=== PATIENT | female | born 1955 | race Caucasian/White ===

== ENCOUNTER 2020-02-21 01:12 | Outpatient (CLI) | payer MEDICARE, SELFPAY ==
[2020-02-21 19:58] LABS: SARS-CoV-2 RNA PCR Negative
== END 2020-02-21 01:13 | disposition home or self-care (01) ==
LOC: ANHCOVIDDT 01:12
PROVIDERS: PCP Family Medicine; Visit Provider Internal Medicine Gastroenterology
DX: Z01.812 Encounter for preprocedural laboratory examination (principal); Z20.828 Contact with and (suspected) exposure to other viral communicable diseases
CPT/HCPCS: 87635; C9803; U0003

== ENCOUNTER 2020-02-23 03:33 | Day surgery (SDC) | payer MEDICARE, SELFPAY ==
[2020-02-16 11:46] VITALS: BMI 32.0
[2020-02-23 09:10] VITALS: BP 155/79; PULSE 72; RESP 16; TEMP 37.1; O2SAT 96; BMI 30.7
[2020-02-23] MEDS: LACTATED RINGERS 1,000 ML 150 ML IV CONT (09:24)
[2020-02-23 09:27] LABS: Glucose Point of Care 119 (65-105)
--- NOTE | 2020-02-23 09:45 | WPDGICN ---
Assessment and Plan Assessment and plan (1) History of colon polyps: Code(s): Z86.010 - Personal history of colonic polyps Status: Acute Assessment and Plan: Patient has history of colon polyps removed 2010 or . Plan is for surveillance colonoscopy at this time. High-fiber diet advised. (2) History of coronary artery stent placement: Code(s): Z95.5 - Presence of coronary angioplasty implant and graft Status: Acute GI Consult Note Consult date/time: 02/23/20 09:45 HPI: Che Crane is a 64 year old female Seen in evaluation at the [facility] of Dr Styles. patient has a history of colon polyp removed from the colon in 2010. Her current weight appetite bowel movements are normal. She presents for follow-up colonoscopy. She denies any abdominal pain. She has had no bleeding. Her bowel habits are regular. Past medical history is significant for atherosclerotic heart disease for which she has had a heart stent. She is on Plavix which will be held for colonoscopy per family history is noncontributory. Review of Systems Review of Systems: All systems reviewed & are unremarkable except as noted in HPI and below PMFSH Past Medical History Medical History (Updated 02/23/20 @ 09:47 by José Miguel Ramon MD) Anxiety disorder, unspecified Atherosclerotic heart disease of [place] coronary artery with angina pectoris Environmental allergies Essential hypertension GERD without esophagitis Hyperlipidemia, unspecified Sleep apnea Type 2 diabetes mellitus without complication, without long-term current use of insulin Surgical History Surgical History (Updated 02/23/20 @ 09:47 by José Miguel Ramon MD) History of cholecystectomy 1982 History of coronary artery stent placement 4 stents - 2006 and 2014 History of loop electrical excision procedure (LEEP) 1999 Family History Family History Father Family history of tuberculosis Family history of emphysema Patient's father is Family history of chronic obstructive pulmonary disease Family history of malignant neoplasm of brain Family history of malignant neoplasm of bone Mother Family history of Alzheimer's disease Family history of hypercholesterolemia Hypertension Sibling Family history of kidney stones Other Cerebrovascular accident Depression Diabetes mellitus Family history of arthritis Family history of mental disorder Malignant neoplasm of prostate Social History Social History Smoking status: Never smoker Alcohol intake: current Drinks per week: 2 Alcohol use details: STATES OCCASSIONAL AND SOCIAL Substance use: never Substance use type: does not use Living arrangements: alone Gender identity (if verbalized by the patient): Female Spiritual care concerns: No Meds Home Medications and Allergies Home Medications Medication Instructions Recorded Confirmed Type amlodipine 10 mg tablet 10 mg PO DAILY 09/22/19 02/16/20 History aspirin 81 mg tablet,delayed 81 mg PO DAILY 09/22/19 02/16/20 History release atorvastatin 20 mg tablet 20 mg PO DAILY 09/22/19 02/16/20 History calcium carbonate 600 mg calcium 600 mg PO DAILY 09/22/19 02/16/20 History (1,500 mg) tablet clopidogrel 75 mg tablet 75 mg PO DAILY 09/22/19 02/16/20 History cyanocobalamin (vitamin B-12) 250 250 mcg PO DAILY 09/22/19 02/16/20 History mcg tablet dulaglutide 1.5 mg/0.5 mL 1.5 mg SUB-Q WEEKLY 09/22/19 02/16/20 History subcutaneous pen injector empagliflozin 10 mg tablet 10 mg PO DAILY 09/22/19 02/16/20 History escitalopram oxalate 10 mg tablet 10 mg PO DAILY #90 tablet 09/22/19 02/16/20 Rx fenofibrate 160 mg tablet 160 mg PO DAILY 09/22/19 02/16/20 History fluticasone propionate 50 1 spray NASAL DAILY 09/22/19 02/16/20 History mcg/actuation nasal spray,suspension losartan 25 mg tablet 25
--- NOTE | 2020-02-23 10:11 | WPDANESEPPF ---
Anes - Initial Pre Proc Eval Procedure: Operation Date: 02/23/20 10:00 Proposed Procedures p Screening Colonoscopy - José Miguel Ramon MD Date/Time: 02/23/20 10:11 Surgeon: José Miguel Ramon MD Pre Op Diagnosis: Hx Colon Polyps Patient Data Age: 64 Gender: F Height: 5 ft 1 in Weight: 73.6 kg Last Vital Signs Temp 37.1 C 02/23/20 09:10 Pulse 72 02/23/20 09:10 Resp 72 H 02/23/20 09:10 BP 155/79 H 02/23/20 09:10 Pulse Ox 96 02/23/20 09:10 Allergies Allergy/AdvReac Type Severity Reaction Status Date / Time lisinopril Allergy Severe swelling, Verified 02/23/20 09:09 itching, hives naproxen Allergy Unknown ITCHING, Verified 02/23/20 09:09 FACIAL SWELLING Home Medications Medication Instructions Recorded Confirmed Type amlodipine 10 mg tablet 10 mg PO DAILY 09/22/19 02/16/20 History aspirin 81 mg tablet,delayed 81 mg PO DAILY 09/22/19 02/16/20 History release atorvastatin 20 mg tablet 20 mg PO DAILY 09/22/19 02/16/20 History calcium carbonate 600 mg calcium 600 mg PO DAILY 09/22/19 02/16/20 History (1,500 mg) tablet clopidogrel 75 mg tablet 75 mg PO DAILY 09/22/19 02/16/20 History cyanocobalamin (vitamin B-12) 250 250 mcg PO DAILY 09/22/19 02/16/20 History mcg tablet dulaglutide 1.5 mg/0.5 mL 1.5 mg SUB-Q WEEKLY 09/22/19 02/16/20 History subcutaneous pen injector empagliflozin 10 mg tablet 10 mg PO DAILY 09/22/19 02/16/20 History escitalopram oxalate 10 mg tablet 10 mg PO DAILY #90 tablet 09/22/19 02/16/20 Rx fenofibrate 160 mg tablet 160 mg PO DAILY 09/22/19 02/16/20 History fluticasone propionate 50 1 spray NASAL DAILY 09/22/19 02/16/20 History mcg/actuation nasal spray,suspension losartan 25 mg tablet 25 mg PO DAILY 09/22/19 02/16/20 History metformin 500 mg tablet 1,000 mg PO BID tablet 09/22/19 02/16/20 History metoprolol succinate 50 mg 50 mg PO DAILY 09/22/19 02/16/20 History tablet,extended release 24 hr nitroglycerin 0.4 mg sublingual 0.4 mg SUBLINGUAL Q5M PRN 09/22/19 02/16/20 History tablet omega 0-lfw-php-fish oil 1,200 mg 2 cap PO DAILY 09/22/19 02/16/20 History (144 mg-216 mg) capsule omeprazole 20 mg capsule,delayed 20 mg PO DAILY 09/22/19 02/16/20 History release vitamin B complex 1 cap PO DAILY 09/22/19 02/16/20 History ezetimibe 10 mg tablet 10 mg PO .twice weekly tablet 12/23/19 02/16/20 History glucosamine sulfate 750 mg tablet 750 mg PO BID 12/23/19 02/16/20 History isosorbide mononitrate 60 mg 90 mg PO DAILY tablet 12/23/19 02/16/20 History tablet,extended release 24 hr Laboratory Tests 02/23/20 09:21 POC Capillary Glucose 119 mg/dl H mg/dl (65-105) Patient hx anesthesia problems: none Family hx anesthesia problems: none PMFSH Past Medical History Medical History Anxiety disorder, unspecified Atherosclerotic heart disease of [place] coronary artery with angina pectoris Environmental allergies Essential hypertension GERD without esophagitis Hyperlipidemia, unspecified Sleep apnea Type 2 diabetes mellitus without complication, without long-term current use of insulin Surgical History Surgical History History of cholecystectomy 1982 History of coronary artery stent placement 4 stents - 2007 and 2014 History of loop electrical excision procedure (LEEP) 1999 Family History Family History Father Family history of tuberculosis Family history of emphysema Patient's father is Family history of chronic obstructive pulmonary disease Family history of malignant neoplasm of brain Family history of malignant neoplasm of bone Mother Family history of Alzheimer's disease Family history of hypercholesterolemia Hypertension Sibling Family history of kidney stones Other Cerebrovascular accident Depressio
[2020-02-23 10:38] VITALS: BP 113/65; PULSE 70; RESP 16; O2SAT 97
[2020-02-23 10:48] VITALS: BP 122/70; PULSE 71; RESP 21; O2SAT 98
[2020-02-23 10:58] VITALS: BP 140/75; PULSE 61; RESP 16; O2SAT 98
== END 2020-02-23 11:20 | disposition home or self-care (01) ==
PROVIDERS: PCP Family Medicine; Visit Provider Internal Medicine Gastroenterology
PROC: 0DJD8ZZ Inspection of Lower Intestinal Tract, Via Natural or Artificial Opening Endoscopic (ICD-10-PCS; CPT 45378; principal; 2020-02-23 10:00)
DX: Z12.11 Encounter for screening for malignant neoplasm of colon (principal); K64.8 Other hemorrhoids; Z86.010 Personal history of colon polyps; Z95.5 Presence of coronary angioplasty implant and graft; I10 Essential (primary) hypertension; I25.10 Atherosclerotic heart disease of native coronary artery without angina pectoris; E78.5 Hyperlipidemia, unspecified; K21.9 Gastro-esophageal reflux disease without esophagitis; E11.9 Type 2 diabetes mellitus without complications; G47.30 Sleep apnea, unspecified; F41.9 Anxiety disorder, unspecified; Z79.82 Long term (current) use of aspirin; Z79.02 Long term (current) use of antithrombotics/antiplatelets; Z79.84 Long term (current) use of oral hypoglycemic drugs
CPT/HCPCS: G0105; J2704; J7120

== ENCOUNTER 2020-05-04 14:40 | Outpatient (CLI) | payer MEDICARE, SELFPAY ==
--- NOTE | 2020-05-04 | ECG_ITS ---
Measurements Intervals [place] Rate: 83 P: 44 IN: 133 QRS: 3 QRSD: 94 T: 30 QT: 367 QTc: 433 Interpretive Statements SINUS RHYTHM ANTEROSEPTAL INFARCT, AGE INDETERMINATE INFERIOR INFARCT, AGE INDETERMINATE ABNORMAL ECG Electronically Signed On 05-04-2020 15:24:31 [employer]PERVISOR [employer]UC[employer] by Eduardo Tuttle D.O.
== END 2020-05-04 14:41 | disposition home or self-care (01) ==
LOC: ANHLAB 14:43 → ANHCARD 14:46
PROVIDERS: PCP Family Medicine; Visit Provider Internal Medicine Cardiovascular Disease
DX: E78.2 Mixed hyperlipidemia (principal); Z98.61 Coronary angioplasty status; G47.33 Obstructive sleep apnea (adult) (pediatric); R09.89 Other specified symptoms and signs involving the circulatory and respiratory systems; R07.9 Chest pain, unspecified; I25.110 Atherosclerotic heart disease of native coronary artery with unstable angina pectoris; I51.9 Heart disease, unspecified; R94.31 Abnormal electrocardiogram [ECG] [EKG]
CPT/HCPCS: 93005

== ENCOUNTER → 2020-10-06 15:56 | Outpatient (CLI) | payer MEDICARE, SELFPAY ==
--- NOTE | ~2020-10-06 | MM_ITS ---
EXAMINATION: MM screening adelita BI w harry HISTORY: Screening mammogram TECHNIQUE: Craniocaudal and mediolateral oblique 3-D tomosynthesis images were obtained and synthetic 2-D images were generated. CAD analysis was submitted and interpreted. COMPARISON: 07/15/2018, 08/31/2015 bilateral digital screening mammogram examinations BREAST PARENCHYMAL COMPOSITION: There are scattered areas of fibroglandular density. FINDINGS: Occasional bilateral benign calcifications. Occasional bilateral benign stable circumscribe d low density subcentimeter opacities, likely benign intramammary lymph nodes or other benign process . There is no evidence of suspicious mass, calcification, or architectural distortion to suggest wade gnancy in either breast. There has been no suspicious interval change. IMPRESSION: 1. No mammographic evidence of malignancy. 2. Recommend routine screening mammography in one year. BI-RADS Category 2: Benign finding(s). Reviewed, dictated and finalized at location A.
== END ==
PROVIDERS: Visit Provider Obstetrics & Gynecology
DX: Z12.31 Encounter for screening mammogram for malignant neoplasm of breast (principal)
CPT/HCPCS: 77063; 77067

== ENCOUNTER → 2022-05-21 12:00 | Outpatient (CLI) | payer MEDICARE, SELFPAY ==
--- NOTE | ~2022-05-21 | DEXA_ITS ---
Bone Density Report Name: ARNALDO NG Age: 66 Sex: Female Ethnicity: White Date of : 1955 Indication: osteopenia; postmenopausal Referring Provider: JULIA FIELD Study: Bone densitometry was performed. Exam Date: May 21, 2022 Accession number: [id number] Bone Density: Region BMD T-score Z-score Classification AP Spine (L1-L4) 0.839 -1.9 0.1 Osteopenia Femoral Neck (Left) 0.658 -1.7 -0.1 Osteopenia Total Hip (Left) 0.841 -0.8 0.6 Normal Femoral Neck (Right) 0.658 -1.7 -0.1 Osteopenia Total Hip (Right) 0.793 -1.2 0.2 Osteopenia Total Hip Mean 0.817 -1.0 0.4 Normal World Health Organization criteria for BMD impression classify patients as: Normal (T-score at or above -1.0), Osteopenia (T-score between -1.0 and -2.5), or Osteoporosis (T-score at or below -2.5). 10-year Fracture Risk(1): Major Osteoporotic Fracture 9.7% Hip Fracture 1.3% Reported Risk Factors: [place] (), Neck BMD=0.658, BMI=32.3 (1) FRAX(R) Version 3.08. Fracture probability calculated for an untreated patient. Fracture probability may be lower if the patient has received treatment. Previous Exams: Region Exam Age BMD T-score BMD Change BMD Change Date g/cm2 vs Baseline vs Previous AP Spine(L1-L4) 05/21/2022 66 0.839 -1.9 0.020 -0.023* 07/15/2018 63 0.862 -1.7 0.043 0.043 08/31/2015 60 0.820 -2.1 Total Hip(Left) 05/21/2022 66 0.841 -0.8 -0.024 -0.043* 07/15/2018 63 0.884 -0.5 0.020 0.020 08/31/2015 60 0.865 -0.6 Total Hip(Right) 05/21/2022 66 0.793 -1.2 -0.035 -0.027* 07/15/2018 63 0.820 -1.0 -0.008 -0.008 08/31/2015 60 0.828 -0.9 *Denotes significance at 95% confidence level, LSC for AP Spine = 0.022 g/cm2, LSC for Total Hip = 0.027 g/cm2 Clinical Information Provided by Patient: Has used the following medications: Vitamin D, Calcium Patient maximum height was 61.5 Menopause Age: 38 No regular weight bearing exercise Drinks caffeinated beverages Onset of menses at age 10 Number of children 2 Impression: The patient has low bone mass, based on the Total Spine T-score. The patient has an estimated ten-year risk of hip fracture of 1.3% and an estimated ten-year risk of major fracture of 9.7%, based on the WHO FRAX algorithm. The BMD for the AP Spine(L1-L4) decreased, changing by -0.023 since
--- NOTE | ~2022-05-21 | MM_ITS ---
EXAMINATION: MM screening adelita BI w harry HISTORY: Screening TECHNIQUE: Craniocaudal and mediolateral oblique 3-D tomosynthesis images were obtained and synthetic 2-D images were generated. CAD analysis was submitted and interpreted. COMPARISON: Comparison to multiple prior studies sequentially, with oldest reviewed study dated 08/30. BREAST PARENCHYMAL COMPOSITION: There are scattered areas of fibroglandular density. FINDINGS: There is no evidence of suspicious mass, calcification, or architectural distortion to sugg est malignancy in either breast. There has been no suspicious interval change. IMPRESSION: 1. No mammographic evidence of malignancy. 2. Recommend routine screening mammography in one year. BI-RADS Category 1: Negative Reviewed, dictated and finalized at location A. SALES TEAM LEADER
== END ==
PROVIDERS: PCP Family Medicine; Visit Provider Obstetrics & Gynecology Gynecology
DX: Z12.31 Encounter for screening mammogram for malignant neoplasm of breast (principal); Z78.0 Asymptomatic menopausal state; M85.89 Other specified disorders of bone density and structure, multiple sites
CPT/HCPCS: 77063; 77067; 77080

== ENCOUNTER 2022-07-15 11:03 | Emergency (ER) | payer MEDICARE, SELFPAY ==
--- NOTE | ~2022-07-15 | XR_ITS ---
XR knee LT min 4V DATE: 07/15/2022 11:39 INDICATION: Left knee pain TECHNIQUE: Standing AP, PA and lateral views. [place] view. COMPARISON: None FINDINGS: There is suprapatellar knee joint effusion. No fracture or dislocation, radiopaque intra-articular loose body or chondrocalcinosis is evident. No periosteal reaction or bone destruction. Joint spaces appear well preserved. IMPRESSION: Knee joint effusion Reviewed, dictated and finalized at location B. IMPRESSION: Knee joint effusion
[2022-07-15 11:18] VITALS: BP 155/86; PULSE 78; RESP 16; TEMP 37.1; O2SAT 97
[2022-07-15 11:22] VITALS: BP 155/86; PULSE 78; RESP 16; TEMP 37.1; O2SAT 97
--- NOTE | 2022-07-15 11:42 | ED.LOWEXIN ---
HPI - Extremity Injury (Lower) General Chief Complaint: Extremity Injury, Lower Stated Complaint: lt knee/leg injury Time Seen by Provider: 07/15/22 11:40 Source: patient, RN notes reviewed and old records reviewed Mode of arrival: ambulatory Limitations: no limitations History of Present Illness HPI Narrative: 67-year-old female who [facility] with pain to her left knee which started on Friday. Patient reports that she was walking on Friday about 4 miles and her left nee started getting painful on her way home during her walk. Patient reports that she has rested her left knee as much as possible over the weekend, has used ice and taken Ibuprofen for her pain with minimal improvement of her left knee pain, Patient is noted to be limping denies any injury to her left knee. MD complaint: other ( left knee pain) Onset (ago): day(s) (4) Severity scale (1-10): 4 Exacerbating factors: weight bearing and movement Treatments prior to arrival: cold therapy, NSAIDS and other (rest) Related Data Home Medications Medication Instructions Recorded Confirmed amlodipine 10 mg tablet 10 mg PO DAILY 09/22/19 07/15/22 aspirin 81 mg tablet,delayed 81 mg PO DAILY 09/22/19 07/15/22 release calcium carbonate 600 mg calcium 600 mg PO DAILY 09/22/19 07/15/22 (1,500 mg) tablet (Calcium) clopidogrel 75 mg tablet (Plavix) 75 mg PO DAILY 09/22/19 07/15/22 fenofibrate 160 mg tablet 160 mg PO DAILY 09/22/19 07/15/22 fluticasone propionate 50 1 spray intranasal DAILY 09/22/19 07/15/22 mcg/actuation nasal spray,suspension losartan 25 mg tablet 25 mg PO DAILY 09/22/19 07/15/22 metformin 500 mg tablet 1,000 mg PO BID 09/22/19 07/15/22 nitroglycerin 0.4 mg sublingual 0.4 mg sublingual Q5M PRN Chest 09/22/19 07/15/22 tablet Pain omeprazole 20 mg capsule,delayed 20 mg PO DAILY 09/22/19 07/15/22 release vitamin B complex 1 cap PO DAILY 09/22/19 07/15/22 ezetimibe 10 mg tablet (Zetia) 10 mg PO .twice weekly 12/23/19 07/15/22 glucosamine sulfate 750 mg tablet 750 mg PO BID 12/23/19 07/15/22 isosorbide mononitrate 60 mg 90 mg PO DAILY 12/23/19 07/15/22 tablet,extended release 24 hr dulaglutide 1.5 mg/0.5 mL 3 mg subcut WEEKLY 06/27/20 07/15/22 subcutaneous pen injector (Trulicity) atorvastatin 40 mg tablet 40 mg PO QHS 01/18/21 07/15/22 metoprolol succinate 100 mg 100 mg PO DAILY 01/18/21 07/15/22 tablet,extended release 24 hr alpha lipoic acid 200 mg tablet 200 mg PO BID 07/15/22 07/15/22 dapagliflozin 10 mg tablet 10 mg PO DAILY 07/15/22 07/15/22 magnesium 200 mg tablet 200 mg PO DAILY 07/15/22 07/15/22 Allergies Allergy/AdvReac Type Severity Reaction Status Date / Time lisinopril Allergy Severe swelling, Verified 07/15/22 11:15 itching, hives naproxen Allergy Unknown ITCHING, Verified 07/15/22 11:15 FACIAL SWELLING Review of Systems Review of Systems: CONSTITUTIONAL: Denies fever, chills, or sweats. EYES: Denies visual changes, redness, or discharge. ENT: Denies rhinorrhea, congestion, sore throat, or otalgia. CARDIOVASCULAR: Denies chest pain, palpitations, or edema. RESPIRATORY: Denies cough or dyspnea. GASTROINTESTINAL: Denies abdominal pain, nausea, vomiting, or diarrhea. GENITOURINARY: Denies dysuria or hematuria. SKIN: Denies rash or itching. MUSCULOSKELETAL: Denies back pain, positive for left knee joint pain, or myalgia. NEUROLOGIC: Denies headache, numbness, or weakness. PSYCHIATRIC: Denies anxiety or depression. All systems reviewed & are unremarkable except as noted in HPI and below PMFSH Past Medical History Medical History Anxiety disorder, unspecified CAD (coronary artery disease) Environmental allergies Essential hypertension GERD without esophagitis Hyperlipidemia, unspecified Sleep apnea Type 2 diabetes mellitus without complication, without long-term current use of insulin Surgical History Surgical History (Reviewed
== END 2022-07-15 12:29 | disposition home or self-care (01) ==
PROVIDERS: Emergency Provider Registered Nurse
DX: M25.462 Effusion, left knee (principal); I25.10 Atherosclerotic heart disease of native coronary artery without angina pectoris; E78.5 Hyperlipidemia, unspecified; E11.9 Type 2 diabetes mellitus without complications; I10 Essential (primary) hypertension; Z79.82 Long term (current) use of aspirin
CPT/HCPCS: 73564; 99213; G0463

== ENCOUNTER 2023-08-25 11:55 | Observation (INO) | payer MEDICARE, SELFPAY ==
[2023-08-25] VITALS (8 sets, daily range): BP systolic 116–158; BP diastolic 61–84; PULSE 78–106; RESP 14–20; TEMP 36.5–36.6; O2SAT 93–98; BMI 30.7
--- NOTE | ~2023-08-25 | MR_ITS ---
EXAMINATION: MR brain/brain stem wo con DATE: 08/26/2023 13:13 INDICATION: Dizziness. TECHNIQUE: Magnetic resonance imaging (MRI) of the brain and brainstem was performed without intraven ous contrast. COMPARISON: Head CT 08/25/2023 FINDINGS: There are scattered areas of nonspecific increased T2-weighted signal intensity in the cere bral white matter and kati. There is no intracranial hemorrhage, acute infarction, or abnormal intrac ranial mass lesion. The ventricles are normal in size. The paranasal sinuses are clear. The orbits ar e normal. The mastoid air cells are normal. IMPRESSION: 1. Mild nonspecific cerebral white matter disease and pontine disease, which likely represents chroni c small vessel ischemic disease. Reviewed, dictated and finalized at location A. IMPRESSION: 1. Mild nonspecific cerebral white matter disease and pontine disease, which ix borden represents chronic small vessel ischemic disease.
--- NOTE | ~2023-08-25 | XR_ITS ---
EXAMINATION: XR chest 2V DATE: 08/25/2023 16:24 INDICATION: Dizziness and hypertension TECHNIQUE: frontal and lateral views of the chest were obtained. COMPARISON: Chest radiograph dated 08/06/2017 FINDINGS: Unchanged mild streaky atelectasis/scarring at the left costophrenic angle. No new airspace opacities , pulmonary edema, pleural effusion or pneumothorax. The cardiomediastinal silhouette is normal. [place]orelei nary artery stenting. IMPRESSION: 1. Unchanged mild streaky atelectasis/scarring at the left costophrenic angle. No acute cardiopulmona ry disease. Reviewed, dictated and finalized at location A. IMPRESSION: 1. Unchanged mild streaky atelectasis/scarring at the left costophrenic angle. No acute cardiopulmonary disease.
--- NOTE | ~2023-08-25 | CT_ITS ---
EXAMINATION: CT brain wo con DATE: 08/25/2023 18:55 INDICATION: dizziness . TECHNIQUE: Computed tomography (CT) of the head was performed without intravenous contrast. The mA wa s adjusted according to patient size. Iterative reconstruction technique was employed. The dose-lengt h product was 605.33 mGy-cm. COMPARISON: None. FINDINGS: No acute intracranial hemorrhage or extra-axial fluid collection. No hydrocephalus, mass, or herniation. No acute ischemic infarct. Unremarkable dural venous sinus attenuation. No acute osseous abnormality. The aerated spaces are clear. Mild chronic white matter change. Atherosclerotic intracranial calcifications. IMPRESSION: No acute intracranial process. Reviewed, dictated and finalized at location K.
--- NOTE | 2023-08-25 12:23 | ECG_ITS ---
SEE SCANNED COPY FOR CONFIRMED REPORT MTDD
--- NOTE | 2023-08-25 15:45 | ED.DIZZY ---
HPI - Dizziness General Chief Complaint: Dizziness <Hola Salgado APRN - Last Filed: 08/25/23 15:47> Stated Complaint: dizziness <Hola Salgado APRN - Last Filed: 08/25/23 15:47> Time Seen by Provider: 08/25/23 15:40 <Hola Salgado APRN - Last Filed: 08/25/23 15:47> Focused HPI: Che is a 68-year-old female patient presenting to the emergency room today with complaints of dizziness that started this morning. She reports that the room was spinning as well as she was feeling unsteady on her feet. Started having nausea , vomiting, and diarrhea. She denies any fever or chills. Does feel some head congestion. General: Well-developed, well nourished, in no apparent distress Head: Normocephalic, atraumatic Eyes: Pupils equally round and reactive to light bilaterally, EOM intact, sclera and conjunctive clear, no discharge, lids normal Ears: TMs intact and congested , ear canals clear, no drainage, grossly hearing normal. Nose: Nares patent, no discharge, no inflammation, no sinus tenderness. Mouth: Oropharynx without lesions or masses, good dentition, MMM. Tongue midline, even rise and fall of uvula Neck: Supple, trachea midline, no enlargement of anterior or posterior cervical nodes, no thyroid masses or goiter palpable. Cardio: Regular rate and rhythm, s1 and s2 normal, no murmur appreciated. Resp: Clear to auscultation bilaterally anteriorly and posteriorly, no rhonchi, rales, wheezing or rubs Musculoskeletal: No deformity, non-tender to palpation, grossly normal range of motion, muscle strength strong and equal, peripheral pulse strong, no edema, no cyanosis, normal gait and station Neuro: Alert and oriented x4 with normal speech, no focal deficits, cranial nerves I through XII intact, muscle strength 5 out of 5, sensation intact bilaterally, Patient screened in triage and initial orders placed. Additional care and disposition to be based upon diagnostic testing and treatment. <Hola Salgado APRN - Last Filed: 08/25/23 15:47> Source: patient <Hola Salgado APRN - Last Filed: 08/25/23 15:47> Mode of arrival: ambulatory <Hola Salgado APRN - Last Filed: 08/25/23 15:47> Limitations: no limitations <Hola Salgado APRN - Last Filed: 08/25/23 15:47> History of Present Illness HPI Narrative: This is a 68 year old female who presents for evaluation of dizziness. She states she initially woke up feeling fine. She later developed fullness in her ears with vertigo , dizziness, nausea, vomiting and diarrhea. She states she felt unsteady with walking . She denies headache, fever, abdominal pain or chest pain. She was given meclizine from triage and she still feels dizzy. <Sheela Alexandre MD - Last Filed: 08/26/23 18:33> Related Data Home Medications: Home Medications Medication Instructions Recorded Confirmed amlodipine 10 mg tablet 10 mg PO DAILY 09/22/19 08/25/23 aspirin 81 mg tablet,delayed 81 mg PO DAILY 09/22/19 08/25/23 release clopidogrel 75 mg tablet (Plavix) 75 mg PO DAILY 09/22/19 08/25/23 fluticasone propionate 50 1 spray intranasal DAILY PRN 09/22/19 08/25/23 mcg/actuation nasal Congestion spray,suspension losartan 25 mg tablet 25 mg PO DAILY 09/22/19 08/25/23 metformin 500 mg tablet 1,000 mg PO BID 09/22/19 08/25/23 nitroglycerin 0.4 mg sublingual 0.4 mg sublingual Q5M PRN Chest 09/22/19 08/25/23 tablet Pain omeprazole 20 mg capsule,delayed 20 mg PO DAILY 09/22/19 08/25/23 release vitamin B complex 1 cap PO DAILY 09/22/19 08/25/23 ezetimibe 10 mg tablet (Zetia) 10 mg PO .twice weekly 12/23/19 08/25/23 glucosamine sulfate 750 mg tablet 750 mg PO BID 12/23/19 08/25/23 isosorbide mononitrate 60 mg 60 mg PO DAILY 12/23/19 08/25/23 tablet,extended release 24 hr atorvastatin 40 mg tablet 40 mg PO DAILY 01/18/21 08/25/23 metoprolol succinate 100 mg 100 mg PO DAILY 01/18/21 08/25/23 tablet,extended release 2
[2023-08-25] MEDS: MECLIZINE HCL 25 MG TABLET PO ×2 (16:00→18:35)
[2023-08-25 16:02] LABS: Basophils Percent Auto 0.3 % (0.2-1.2); Eosinophils Percent Auto 0.1 % (0-4.4); Hematocrit 48.3 % (37.0-47.0); Hemoglobin 15.9 g/dL (12.0-15.0); Immature Granulocyte Absolute 0.03 K/mm3 (0.00-0.031); Immature Granulocyte Percent A 0.3 % (0-0.5); Lymphocytes Absolute Auto 1.21 K/mm3 (0.9-3.2); Lymphocytes Percent Auto 12.6 % (18.3-44.2); Mean Corpuscular HGB Conc 32.9 g/dl (32-36); Mean Corpuscular Hemoglobin 31.1 pg (26-34); Mean Corpuscular Volume 94.3 fl (80-100); Mean Platelet Volume 9.6 fl (7.4-10.4); Monocytes Absolute Auto 0.4 K/mm3 (0.1-0.6); Monocytes Percent Auto 4.5 % (2.6-8.5); Neutrophils Absolute Auto 7.9 K/mm3 (1.3-6.7); Neutrophils Percent Auto 82.2 % (45.5-73.1); Platelet Count Result 275 k/mm3 (150-375); Red Blood Count 5.12 M/mm3 (4.2-5.4); Red Cell Distribution Width 13.6 % (11.5-14.5); White Blood Count 9.6 K/mm3 (4.5-10.0)
[2023-08-25 16:17] LABS: Alanine Aminotransferase 24 U/L (6-35); Albumin Level 5.1 g/dL (3.5-5.1); Alkaline Phosphatase 62 U/L (38-126); Anion Gap 11 mmol/L (4-12); Aspartate Amino Transferase 25 U/L (14-36); Bilirubin,Total 0.7 mg/dL (0.2-1.3); Blood Urea Nitrogen 17 mg/dL (7-17); Calcium 9.3 mg/dL (8.4-10.2); Carbon Dioxide 24 mmol/L (22-30); Chloride 104 mmol/L (98-107); Estimated CRCL calculation 81 ml/min; Estimated Glomerular Filt Rate > 60; Glucose 152 mg/dL (65-110); Lipase 115 U/L (23-300); Potassium 4.1 mmol/L (3.4-5.0); Sodium 139 mmol/L (137-145)
[2023-08-25 16:18] LABS: INR 0.9; Partial Thromboplastin Time 26.2 Seconds (22.3-36.8); Prothrombin Time 12.5 Seconds (11.1-14.7)
[2023-08-25 16:27] LABS: Troponin I < 0.012 ng/mL (0.000-0.034)
[2023-08-25 17:02] LABS: Influenza A QL RT-PCR Negative (Negative); Influenza B QL RT-PCR Negative (Negative); RSV RNA, RT-PCR Negative (Negative); SARS-CoV-2 RNA PCR Negative (Negative)
[2023-08-25] MEDS: ONDANSETRON INJ 4 MG/2 ML VIAL IV PUSH (18:35)
[2023-08-25] MEDS: SODIUM CHLORIDE 0.9% IV 1,000 ML 999 ML IV CONT (18:35)
[2023-08-25 19:29] LABS: Troponin I < 0.012 ng/mL (0.000-0.034)
[2023-08-25] MEDS: PROMETHAZINE HCL 25 MG/ML AMPUL 12.5 MG IV PUSH (20:37)
[2023-08-25 22:18] LABS: Troponin I < 0.012 ng/mL (0.000-0.034)
--- NOTE | 2023-08-25 22:39 | ADMGEN ---
This patient, Che Crane, was admitted to [facility] Surg Room 329-01. Patient/family oriented to hospital policies and general routines including ID bracelet, bed and alarms, visiting hours, pain management, procedures, bathroom and other care routines, personal items, smoking policy, room service/diet, and visiting hours. Information on how to activate the Rapid Response Team has been discussed. Patient/Family are encouraged to report perceived risks to care and to ask questions if they do not understand what they are told or what they should do.
[2023-08-25] MEDS: SODIUM CHLORIDE 0.9% IV 1,000 ML 125 ML IV CONT (23:13)
[2023-08-26] VITALS (11 sets, daily range): BP systolic 117–149; BP diastolic 63–80; PULSE 67–83; RESP 16–18; TEMP 36.3–36.9; O2SAT 92–97
[2023-08-26] MEDS: MECLIZINE HCL 12.5 MG TABLET PO ×4 (08:33→20:10)
--- NOTE | 2023-08-26 08:40 | PM.IMHP ---
H&P: HPI History of Present Illness Date/Time: 08/26/23 08:40 Chief Complaint: Dizziness/N/V/D Narrative: Patient is a 68-year-old female who presented to the emergency department with complains dizziness as well as nausea, vomiting, and diarrhea. Patient reports symptoms began this morning and worsened through the day, states she started having head congestion and the room began to spin causing nausea and vomiting. Patient has a history of CAD with Stent, FILOMENA, DMII, HLD,GERD,and HTN. CT Head showed no acute issues and CXR with no acute cardiopulmonary issues. Patient was initially given meclizine in the emergency department but continued to complaints dizziness after follow-up. Patient's BP orthostatics was negative she was actually mildly hypertensive. Initial neurovascular showed no focal deficits and bilateral muscle strength of 5/5 all sensations intact. Patient's troponins x3 were negative an EKG showed no ST/T acute ischemic changes. COVID/Influenza/RSV were negative. Patient was admitted for further evaluation will order MRI brain to r/o stroke and continue with antiemetics and meclizine and reassess for resolution. Review of Systems Review of Systems: All systems reviewed & are unremarkable except as noted in HPI and below PMFSH Past Medical History Medical History Anxiety disorder, unspecified CAD (coronary artery disease) Environmental allergies Essential hypertension GERD without esophagitis Hyperlipidemia, unspecified Sleep apnea Type 2 diabetes mellitus without complication, without long-term current use of insulin Surgical History Surgical History History of cholecystectomy 1982 History of coronary artery stent placement 4 stents - 2007 and 2015 History of loop electrical excision procedure (LEEP) 1999 Family History Family History Father Family history of malignant neoplasm of bone Patient's father is Family history of emphysema Family history of tuberculosis Family history of chronic obstructive pulmonary disease Family history of malignant neoplasm of brain Mother Family history of Alzheimer's disease Family history of hypercholesterolemia Hypertension Sibling Family history of kidney stones Cerebrovascular accident Depression Family history of arthritis Grandparent Cerebrovascular accident Malignant neoplasm of prostate Other Diabetes mellitus Grandparent Diabetes mellitus Family history of arthritis Sibling Family history of mental disorder Social History Social History Smoking status: Never smoker Alcohol intake: current Drinks per week: 1 Alcohol use details: STATES OCCASSIONAL AND SOCIAL Substance use: never Substance use type: does not use Do You Feel Safe in your Home?: Yes Lack of Transportation: No Lack of Food: Never True Current Housing: I Have Housing Concerned About Future Housing: No Difficulty Paying Gas/Electric Bills: No Difficulty Paying for Meds: No Currently Unemployed: No Education: High School Diploma/GED Difficulty w/ Childcare or Family Care: No Living arrangements: alone Gender identity (if verbalized by the patient): Female Spiritual care concerns: No Meds Home Medications and Allergies Home Medications Medication Instructions Recorded Confirmed Type amlodipine 10 mg tablet 10 mg PO DAILY 09/22/19 08/25/23 History aspirin 81 mg tablet,delayed 81 mg PO DAILY 09/22/19 08/25/23 History release clopidogrel 75 mg tablet (Plavix) 75 mg PO DAILY 09/22/19 08/25/23 History fluticasone propionate 50 1 spray intranasal DAILY PRN 09/22/19 08/25/23 History mcg/actuation nasal Congestion spray,suspension losartan 25 mg tablet 25 mg PO DAILY
[2023-08-26 09:10] LABS: Hematocrit 48.7 % (37.0-47.0); Hemoglobin 15.4 g/dL (12.0-15.0); Mean Corpuscular HGB Conc 31.6 g/dl (32-36); Mean Corpuscular Hemoglobin 30.9 pg (26-34); Mean Corpuscular Volume 97.6 fl (80-100); Mean Platelet Volume 9.4 fl (7.4-10.4); Platelet Count Result 264 k/mm3 (150-375); Red Blood Count 4.99 M/mm3 (4.2-5.4); Red Cell Distribution Width 13.9 % (11.5-14.5); White Blood Count 7.7 K/mm3 (4.5-10.0)
[2023-08-26] MEDS: ATORVASTATIN 40 MG TABLET PO (09:16)
[2023-08-26] MEDS: EMPAGLIFLOZIN 25 MG TABLET BY MOUTH (09:16)
[2023-08-26] MEDS: VITAMIN B COMPLEX CAPSULE 1 CAP PO (09:17)
[2023-08-26] MEDS: MAGNESIUM OXIDE 200 MG TABLET PO (09:17)
[2023-08-26] MEDS: ISOSORBIDE MONONITRATE 60 MG TAB.ER.24H PO (09:17)
[2023-08-26] MEDS: LORATADINE 10 MG TABLET PO (09:17)
[2023-08-26] MEDS: CLOPIDOGREL BISULFATE 75 MG TABLET PO (09:17)
[2023-08-26] MEDS: ESCITALOPRAM OXALATE 5 MG TABLET PO (09:17)
[2023-08-26] MEDS: amLODIPine BESYLATE 5 MG TABLET 10 MG PO (09:17)
[2023-08-26] MEDS: PANTOPRAZOLE 40 MG TABLET PO (09:17)
[2023-08-26] MEDS: LOSARTAN POTASSIUM 25 MG TABLET PO (09:17)
[2023-08-26] MEDS: METOPROLOL SUCCINATE EXT REL 100 MG TABCR PO (09:17)
[2023-08-26 09:29] LABS: Alanine Aminotransferase 19 U/L (6-35); Albumin Level 4.3 g/dL (3.5-5.1); Alkaline Phosphatase 49 U/L (38-126); Anion Gap 6 mmol/L (4-12); Aspartate Amino Transferase 21 U/L (14-36); Bilirubin,Total 0.7 mg/dL (0.2-1.3); Blood Urea Nitrogen 10 mg/dL (7-17); Calcium 8.6 mg/dL (8.4-10.2); Carbon Dioxide 27 mmol/L (22-30); Chloride 108 mmol/L (98-107); Cholesterol 100 mg/dL (0-200); Estimated CRCL calculation 81 ml/min; Estimated Glomerular Filt Rate > 60; Glucose 176 mg/dL (65-110); HDL Direct 36 mg/dL; Potassium 3.7 mmol/L (3.4-5.0); Sodium 141 mmol/L (137-145); Triglycerides 239 mg/dL (<150)
[2023-08-26 09:39] LABS: LDL Cholesterol Direct 51 mg/dL
[2023-08-26] MEDS: VITAMIN B COMPLEX/VIT C CAPSULE 1 EACH PO (10:43)
[2023-08-26 11:24] LABS: Glucose Point of Care 143 mg/dl (65-105)
[2023-08-26] MEDS: AMOXICILLIN/CLAVULANATE K 875-125 MG TAB 1 TABLET PO ×2 (13:34→20:10)
[2023-08-26 16:38] LABS: Glucose Point of Care 136 mg/dl (65-105)
[2023-08-26] MEDS: ASPIRIN 81 MG ENTERIC TABLET PO (20:10)
[2023-08-26 21:01] LABS: Glucose Point of Care 144 mg/dl (65-105)
[2023-08-27] VITALS (10 sets, daily range): BP systolic 113–151; BP diastolic 62–83; PULSE 64–85; RESP 16–18; TEMP 36.1–36.7; O2SAT 95–98
[2023-08-27 06:31] LABS: Hematocrit 46.7 % (37.0-47.0); Mean Corpuscular HGB Conc 32.1 g/dl (32-36); Mean Corpuscular Hemoglobin 30.9 pg (26-34); Mean Corpuscular Volume 96.1 fl (80-100); Mean Platelet Volume 9.4 fl (7.4-10.4); Platelet Count Result 245 k/mm3 (150-375); Red Blood Count 4.86 M/mm3 (4.2-5.4); Red Cell Distribution Width 13.9 % (11.5-14.5)
[2023-08-27 06:42] LABS: Alanine Aminotransferase 20 U/L (6-35); Albumin Level 4.3 g/dL (3.5-5.1); Alkaline Phosphatase 48 U/L (38-126); Anion Gap 8 mmol/L (4-12); Aspartate Amino Transferase 22 U/L (14-36); Bilirubin,Total 0.6 mg/dL (0.2-1.3); Blood Urea Nitrogen 15 mg/dL (7-17); Calcium 9.3 mg/dL (8.4-10.2); Carbon Dioxide 24 mmol/L (22-30); Chloride 110 mmol/L (98-107); Estimated CRCL calculation 60 ml/min; Estimated Glomerular Filt Rate > 60; Glucose 134 mg/dL (65-110); Potassium 4.1 mmol/L (3.4-5.0); Sodium 142 mmol/L (137-145)
[2023-08-27 07:39] LABS: Glucose Point of Care 135 mg/dl (65-105)
[2023-08-27] MEDS: AMOXICILLIN/CLAVULANATE K 875-125 MG TAB 1 TABLET PO (08:11)
[2023-08-27] MEDS: CLOPIDOGREL BISULFATE 75 MG TABLET PO (08:11)
[2023-08-27] MEDS: LORATADINE 10 MG TABLET PO (08:11)
[2023-08-27] MEDS: EMPAGLIFLOZIN 25 MG TABLET BY MOUTH (08:12)
[2023-08-27] MEDS: ESCITALOPRAM OXALATE 5 MG TABLET PO (08:12)
[2023-08-27] MEDS: PANTOPRAZOLE 40 MG TABLET PO (08:12)
[2023-08-27] MEDS: ISOSORBIDE MONONITRATE 60 MG TAB.ER.24H PO (08:12)
[2023-08-27] MEDS: LOSARTAN POTASSIUM 25 MG TABLET PO (08:12)
[2023-08-27] MEDS: ATORVASTATIN 40 MG TABLET PO (08:12)
[2023-08-27] MEDS: MECLIZINE HCL 12.5 MG TABLET PO ×3 (08:12→16:37)
[2023-08-27] MEDS: VITAMIN B COMPLEX/VIT C CAPSULE 1 EACH PO (08:12)
[2023-08-27] MEDS: METOPROLOL SUCCINATE EXT REL 100 MG TABCR PO (08:12)
[2023-08-27] MEDS: MAGNESIUM OXIDE 200 MG TABLET PO (08:12)
[2023-08-27] MEDS: VITAMIN B COMPLEX CAPSULE 1 CAP PO (08:12)
[2023-08-27] MEDS: amLODIPine BESYLATE 5 MG TABLET 10 MG PO (08:12)
[2023-08-27 11:15] LABS: Glucose Point of Care 137 mg/dl (65-105)
--- NOTE | 2023-08-27 15:46 | P.DS_ITS ---
DS: Admitting Diagnosis Discharge Date 08/27/23 Admitting Diagnosis dizziness DS: Discharge Diagnosis Discharge Diagnosis (1) Vertigo: Code(s): R42 - Dizziness and giddiness Status: Acute Assessment and Plan: * CT head with no acute process * MRI brain showed only mild nonspecific cerebral white matter disease * Orthostatics negative * Antihistamine * Meclizine * Antiemetics * Vestibular PT/OT - to continue outpatient * d/c Augmentin for sinusitis as exam does not correlate with dx (2) CAD (coronary artery disease): Qualifiers: Associated angina: without angina Coronary Disease-Associated Artery/Lesion type: [place] artery [place] vs. transplanted heart: [place] heart Qualified Code(s): I25.10 - Atherosclerotic heart disease of [place] coronary artery without angina pectoris Code(s): I25.10 - Atherosclerotic heart disease of [place] coronary artery without angina pectoris Status: Chronic Assessment and Plan: * Troponin negative x3 * EKG no ischemic changes * resume patient's ASA and Plavix (3) Type 2 diabetes mellitus without complication, without long-term current use of insulin: Code(s): E11.9 - Type 2 diabetes mellitus without complications Status: Chronic (4) Hyperlipidemia, unspecified: Qualifiers: Hyperlipidemia type: unspecified Qualified Code(s): E78.5 - Hyperlipidemia, unspecified Code(s): E78.5 - Hyperlipidemia, unspecified Status: Chronic (5) Essential hypertension: Code(s): I10 - Essential (primary) hypertension Status: Chronic DS: Summary Hospital Course Hospital Course: Patient is a 68-year-old female with PMH of CAD with Stent, FILOMENA, DMII, HLD,GERD,and HTN admitted for dizziness, nausea, vomiting, and diarrhea. CT Head showed no acute issues and CXR with no acute cardiopulmonary issues. Patient was initially given meclizine in the emergency department but continued to complaints dizziness after follow-up. Patient's BP orthostatics was negative she was actually mildly hypertensive. Initial neurovascular showed no focal deficits and bilateral muscle strength of 5/5 all sensations intact. Patient's troponins x3 were negative an EKG showed no ST/T acute ischemic changes. COVID/Influenza/RSV were negative. MRI brain showed no acute changes. Patient condition did improve with PT therapy for BPV, to having mild dizziness. She was positive for vertigo on testing. She is stable for d/c home with outpatient PT for vertigo, continue Claritin and Meclizine. Status at Discharge Functional status at discharge: independent ambulation Overall status at discharge: patient is progressing back to baseline Exam Narrative: * GENERAL: Well appearing female sitting up in bed. No acute distress. * EYES: EOMI. PERRLA. * HEENT: Moist mucous membranes. * LUNGS: Lungs clear to auscultation bilaterally. * CARDIOVASCULAR: RRR. No murmur. S1-S2 * ABDOMEN: Soft, non-tender and non-distended. BS present and active. * EXTREMITIES: No edema. * SKIN: No rashes or lesions. Skin warm, dry. * NEUROLOGIC: Alert and oriented x 3. No focal neurological deficits. CN II-XII grossly intact * PSYCH: Appropriate mood and affect. Good judgement and insight. DS: Data Data Completed and Pending Labs on day of discharge: Labs from last 24 hours 08/27/23 08/27/23 08/27/23 11:10 07:32 06:23 WBC 6.0 RBC 4.86 Hgb 15.0 Hct 46.7 MCV 96.1 MC
--- NOTE | 2023-08-27 15:46 | PM.DS ---
DS: Admitting Diagnosis Discharge Date 08/27/23 Admitting Diagnosis dizziness DS: Discharge Diagnosis Discharge Diagnosis (1) Vertigo: Code(s): R42 - Dizziness and giddiness Status: Acute Assessment and Plan: CT head with no acute process MRI brain showed only mild nonspecific cerebral white matter disease Orthostatics negative Antihistamine Meclizine Antiemetics Vestibular PT/OT - to continue outpatient d/c Augmentin for sinusitis as exam does not correlate with dx (2) CAD (coronary artery disease): Qualifiers: Associated angina: without angina Coronary Disease-Associated Artery/Lesion type: [place] artery [place] vs. transplanted heart: [place] heart Qualified Code(s): I25.10 - Atherosclerotic heart disease of [place] coronary artery without angina pectoris Code(s): I25.10 - Atherosclerotic heart disease of [place] coronary artery without angina pectoris Status: Chronic Assessment and Plan: Troponin negative x3 EKG no ischemic changes resume patient's ASA and Plavix (3) Type 2 diabetes mellitus without complication, without long-term current use of insulin: Code(s): E11.9 - Type 2 diabetes mellitus without complications Status: Chronic (4) Hyperlipidemia, unspecified: Qualifiers: Hyperlipidemia type: unspecified Qualified Code(s): E78.5 - Hyperlipidemia, unspecified Code(s): E78.5 - Hyperlipidemia, unspecified Status: Chronic (5) Essential hypertension: Code(s): I10 - Essential (primary) hypertension Status: Chronic DS: Summary Hospital Course Hospital Course: Patient is a 68-year-old female with PMH of CAD with Stent, FILOMENA, DMII, HLD,GERD,and HTN admitted for dizziness, nausea, vomiting, and diarrhea. CT Head showed no acute issues and CXR with no acute cardiopulmonary issues. Patient was initially given meclizine in the emergency department but continued to complaints dizziness after follow-up. Patient's BP orthostatics was negative she was actually mildly hypertensive. Initial neurovascular showed no focal deficits and bilateral muscle strength of 5/5 all sensations intact. Patient's troponins x3 were negative an EKG showed no ST/T acute ischemic changes. COVID/Influenza/RSV were negative. MRI brain showed no acute changes. Patient condition did improve with PT therapy for BPV, to having mild dizziness. She was positive for vertigo on testing. She is stable for d/c home with outpatient PT for vertigo, continue Claritin and Meclizine. Status at Discharge Functional status at discharge: independent ambulation Overall status at discharge: patient is progressing back to baseline Exam Narrative: GENERAL: Well appearing female sitting up in bed. No acute distress. EYES: EOMI. PERRLA. HEENT: Moist mucous membranes. LUNGS: Lungs clear to auscultation bilaterally. CARDIOVASCULAR: RRR. No murmur. S1-S2 ABDOMEN: Soft, non-tender and non-distended. BS present and active. EXTREMITIES: No edema. SKIN: No rashes or lesions. Skin warm, dry. NEUROLOGIC: Alert and oriented x 3. No focal neurological deficits. CN II-XII grossly intact PSYCH: Appropriate mood and affect. Good judgement and insight. DS: Data Data Completed and Pending Labs on day of discharge: Labs from last 24 hours 08/27/23 08/27/23 08/27/23 11:10 07:32 06:23 WBC 6.0 RBC 4.86 Hgb 15.0 Hct 46.7 MCV 96.1 MCH 30.9 MCHC 32.1 RDW 13.9 Plt Count 245 MPV 9.4 Sodium 142 Potassium 4.1 Chloride 110 H Carbon Dioxide 24 Anion Gap 8 BUN 15 D Creatinine 0.70 Estim Creat Clear Calc 60 Estimated GFR > 60 Glucose 134 H POC Capillary Glucose 137 H 135 H Calcium 9.3 Total Bilirubin 0.6 AST 22 ALT 20 Alkaline Phosphatase 48 Total Protein 7.0 Albumin 4.3 08/26/23 08/26/23 20:25 16:36 WBC RBC Hgb Hct MCV MCH MCHC RDW
[2023-08-27 16:32] LABS: Glucose Point of Care 197 mg/dl (65-105)
== END 2023-08-27 16:50 | disposition home or self-care (01) ==
LOC: ANHED 22:06 → ANH3MEDSUR 22:06
PROVIDERS: Emergency Medicine; Nurse Practitioner Family; Admitting Provider Internal Medicine; Emergency Provider General Practice; Visit Provider Internal Medicine
DX: R42 Dizziness and giddiness (principal); I25.10 Atherosclerotic heart disease of native coronary artery without angina pectoris; I10 Essential (primary) hypertension; E78.5 Hyperlipidemia, unspecified; E11.9 Type 2 diabetes mellitus without complications; G47.30 Sleep apnea, unspecified; F41.9 Anxiety disorder, unspecified; Z95.5 Presence of coronary angioplasty implant and graft; Z79.82 Long term (current) use of aspirin; Z79.02 Long term (current) use of antithrombotics/antiplatelets; Z79.84 Long term (current) use of oral hypoglycemic drugs; Z79.85 Long-term (current) use of injectable non-insulin antidiabetic drugs; Z20.822 Contact with and (suspected) exposure to COVID-19
CPT/HCPCS: 36415; 70450; 70551; 71046; 80053; 80061; 82948; 83690; 84484; 85025; 85027; 85610; 85730; 87637; 93005; 96361; 96374; 96375; 97161; 97165; 97530; 99285; A9270; G0378; J2405; J2550; J7030

== ENCOUNTER 2023-12-26 12:33 | Outpatient (CLI) | payer MEDICARE, SELFPAY ==
--- NOTE | ~2023-12-26 | MM_ITS ---
EXAMINATION: MM screening adelita BI w harry HISTORY: Screening TECHNIQUE: Craniocaudal and mediolateral oblique 3-D tomosynthesis images were obtained and synthetic 2-D images were generated. CAD analysis was submitted and interpreted. COMPARISON: Comparison to multiple prior studies sequentially, with oldest reviewed study dated 08/30. BREAST PARENCHYMAL COMPOSITION: Not dense: There are scattered areas of fibroglandular density. FINDINGS: There is no evidence of suspicious mass, calcification, or architectural distortion to sugg est malignancy in either breast. There has been no suspicious interval change. IMPRESSION: 1. No mammographic evidence of malignancy. 2. Recommend routine screening mammography in one year. BI-RADS Category 1: Negative Reviewed, dictated and finalized at location B.
== END 2023-12-26 12:34 | disposition home or self-care (01) ==
LOC: MICIMG 12:34
PROVIDERS: PCP Family Medicine; Visit Provider Obstetrics & Gynecology Gynecology
DX: Z12.31 Encounter for screening mammogram for malignant neoplasm of breast (principal)
CPT/HCPCS: 77063; 77067